=== PATIENT | female | born 1960 | race Caucasian/White ===

== ENCOUNTER 2024-12-14 23:45 | Inpatient (IN) | payer SELFPAY ==
[2024-12-14 18:26] VITALS: BP 147/94
[2024-12-14 18:48] LABS: % Basophils 0.6 % (0-2); % Eosinophils 4.7 % (0-6); % Immature Granulocytes 0.4 % (0-0.5); % Lymphocytes 26.5 % (20.5-51.1); % Monocytes 8.2 % (1.7-9.3); % Neutrophils 59.6 % (42.2-75.2); Absolute Basophils 0.1 10^3/uL (0-0.2); Absolute Eosinophils 0.4 10^3/uL (0-0.7); Absolute Lymphocytes 2.2 10^3/uL (1.2-3.4); Absolute Monocytes 0.7 10^3/uL (0.1-0.6); Absolute Neutrophils 4.9 10^3/uL (1.4-6.5); Hematocrit 42.5 % (37.0-47.0); Hemoglobin 14.5 g/dL (12.0-16.0); Mean Corp Hgb Conc. 34.1 g/dL (33.0-37.0); Mean Corpuscular Hgb 31.1 pg (27.0-31.0); Mean Corpuscular Volume 91.2 fL (81.0-99.0); Mean Platelet Volume 9.7 fL (7.4-10.4); Nucleated Red Blood Cells % 0 %; Platelet Count 275 10^3/uL (130-400); Red Blood Cell Count 4.66 10^6/uL (4.20-5.40); Red Cell Dist. Width 12.6 % (11.5-14.5); White Blood Cell Count 8.2 10^3/uL (4.8-10.8)
[2024-12-14 19:01] LABS: ALT (SGPT) 21 U/L (0-35); AST (SGOT) 24 U/L (14-36); Albumin 4.7 g/dl (3.5-5.0); Alkaline Phosphatase 108 U/L (38-126); Blood Urea Nitrogen 12 mg/dl (7-17); Calcium 9.5 mg/dl (8.4-10.2); Carbon Dioxide 28 mmol/L (22-30); Chloride 102 mmol/L (98-107); Glucose 107 mg/dl (70-99); Potassium 4.3 mmol/L (3.5-5.1); Sodium 137 mmol/L (135-145); Total Bilirubin 0.7 mg/dl (0.2-1.3); Total Protein 7.2 g/dl (6.3-8.2); eGFR > 60.00
[2024-12-14 19:02] LABS: INR 0.95
[2024-12-14 19:14] LABS: Troponin I < 0.012 ng/ml
--- NOTE | 2024-12-14 20:33 | ED.GENMED ---
History of Present Illness
General
Chief Complaint: Breathing Problem
Source: patient
Time Seen by Provider: 12/14/24 20:14
History of Present Illness
History of Present Illness:
This patient is a 64-year-old female with a prior history of COPD who states she has been dyspneic for at least the last 4 to 5 days associated with productive cough and dyspnea on exertion. She sometimes will feel tight in her chest particularly
with coughing, but denies chest pain or pressure. She denies fever, chills, nausea, vomiting, anorexia, leg swelling, abdominal pain, back pain, headache, dizziness, or other complaints.
Past History
Past History
ED Past Medical History: COPD and Psychiatric (Anxiety, depression)
ED Past Surgical History: Gynecological (Ectopic )
Social History
Tobacco: Former smoker
Alcohol: None
Drug: None
Personal:
Living: with family
Phy Exam
Physical Exam
Physical Exam:
GENERAL: Alert , in no apparent distress
EYE: pupils equal and reactive
NECK: Supple, no significant adenopathy.
ENT: o/p clr, mmm.
CARDIAC: Regular rate and rhythm .
LUNGS: Equal breath sounds bilaterally, mild respiratory distress, diffuse wheezes noted, no rales or rhonchi
ABDOMEN: Soft, without focal tenderness, no r/g, no cvat
NEUROLOGICAL: Alert and oriented, no focal neuro deficits
SKIN: Warm and dry, skin intact.
MUSCULOSKELETAL: No edema, well perfused.
PSYCH: Normal and appropriate interaction.
Scores
Heart Failure Risk
Heart Failure Risk Score: Not Applicable
Course
Orders/Labs/Results
Orders:
Orders
12/14/24 18:12
EKG [Electrocardiogram (*1)] Urgent
Reason for Study: Shortness of Breath
EKG- Treatment ONCE
CR Chest - 2 Views Urgent
Comment:
Reason For Exam: SOB
12/14/24 18:33
Complete Blood Count/With Diff Urgent
Comprehensive Metabolic Panel Urgent
Prothrombin Time Urgent
Troponin I Urgent
12/14/24 20:32
Albuterol Sulfate [Ventolin Nebules] 15 mg INH R NOW STA
Dexamethasone Sod Phosphate [Decadron] 8 mg IV NOW STA
12/14/24 21:04
COVID-19 Antigen Urgent
Source: Nasal Swab
Influenza A+B Rapid Molecular Urgent
SEA Source: Nasal Swab
Specimen Description:
Abnormal Lab Results
12/14/24
18:33
MCH 31.1 H pg
(27.0-31.0)
Absolute Monos (auto) 0.7 H 10^3/uL
(0.1-0.6)
Glucose 107 H mg/dl
(70-99)
12/14/24 18:33
12/14/24 18:33
Vital Signs
Initial and Last Documented VS:
Initial Vital Signs
Temp Pulse Resp BP Pulse Ox
98.5 F 104 20 147/94 94
12/14/24 18:26 12/14/24 18:26 12/14/24 18:26 12/14/24 18:26 12/14/24 18:26
Last Documented Vital Signs
Temp Pulse Resp BP Pulse Ox
98.5 F 90 15 150/94 94
12/14/24 18:26 12/14/24 21:09 12/14/24 21:06 12/14/24 21:09 12/14/24 21:09
*Critical Care Note
Total Time (30-74mins, 75-104mins- exclusive of procedures): Not Applicable
Update Note
Update Note:
Patient presents to the Emergency Department with ____dyspnea
Number and Complexity of Problems Addressed at the Encounter
� Chronic conditions affecting care:
� Acute Exacerbation and/or Progression of Chronic Illness:
� Differential Diagnosis includes: But not limited to influenza, COVID, COPD exacerbation, pneumonia, bronchitis, etc. etc.
Amount and/or Complexity of Data to be Reviewed and Analyzed
� I performed an independent evaluation of and my interpretation is:
EKG: Read by me, normal sinus rhythm with PVCs, no acute ischemia
CT:
Xrays: Read by me, NAD, COPD
Laboratory Studies: Read by me, generally unremarkable
Other:
� Review of other/old records reveals: Discharge summary reviewed December 2022 patient was admitted with an exacerbation of COPD associated with influenza
� Clinical information was obtained by an independent historian:
� Prescriptions/Medications Considered but not given:
� Further testing considered but not performed:
Risk of Complications and/or Morbidity or Mortality of Patient Management
� Social determinants of health affecting care:
� Discussion with other providers (PCP, Hospitalists, Consultants, etc):
� Escalation of care including admission/observation vs risk of discharge considered:1004 pm Reassessment, s/p neb...still with significant wheezing, c/o sob. Pox is stable at 92-93%. Will admit/obs for continued care. No
specific infectious etiology identified.
ED Attending Note
-
Portions of this chart may have been created with voice recognition software.� Occasional wrong word or��sound alike� substitutions may have occurred due to the inherent limitations of voice recognition software.
Discharge Plan
Departure
Patient Disposition: Admit
Date of Disposition: 12/14/24
Time of Disposition: 22:04
Admit to: Telemetry
Admit to doctor: armida
Presentation/result/management discussed w/ accepting MD/DO: Hospitalist
Condition: Good
Discharge Problem:
Acute exacerbation of chronic obstructive pulmonary disease
Prescriptions:
No Action
citalopram [Celexa] 40 mg Tablet
40 mg PO DAILY
ipratropium-albuterol 0.5 mg-3 mg(2.5 mg base)/3 mL solution for nebulization
3 ml inhalation R Q4HPRN PRN (Reason: wheezing)
fluticasone propion-salmeterol [Advair Diskus] 100-50 mcg/dose blister with device
1 inh inhalation R BID
guaifenesin [Mucinex] 600 mg tablet extended release 12hr
600 mg PO Q12
benzonatate 100 mg Capsule
100 mg PO TIDPRN PRN (Reason: cough) Qty: 14 0RF
prednisone 20 mg tablet
20 mg PO DAILY Qty: 30 0RF
Rx Instructions:
50mg daily x 3 days, 40mg daily x 3 days, 30mg daily x 3 days, 20mg daily x 3 days, 10mg daily x 3 days (use with 10 mg tabs)
albuterol sulfate 90 mcg/actuation HFA aerosol inhaler
2 puff inhalation R Q6HPRN PRN (Reason: wheezing while out of home) Qty: 0 0RF
prednisone 10 mg tablet
10 mg PO DAILY Qty: 30 0RF
Rx Instructions:
50 mg daily x 3 days, 40mg daily x 3 days, 30 mg daily x 3 days, 20 mg daily x 3 days, 10 mg daily x 3 days (use with 20 mg tabs)
Referrals:
NONE,* [Family Provider] -
Interventions
Interventions:
*Risk Screen - Suicide Last Done: 12/14/24 18:26
*General Assessment Last Done: 12/14/24 21:06
*Neglect/Abuse Screening Last Done: 12/14/24 18:26
*ED COVID-19 Vaccine History Last Done: 12/14/24 21:06
ED- Cardiac Assessment Last Done: 12/14/24 21:19
ED- Pulmonary Assessment Last Done: 12/14/24 21:19
Discharge Date and Time
Print Language: MALAY
[2024-12-14 21:09] VITALS: BP 150/94
[2024-12-14] MEDS: VENTOLIN NEBULES 15 MG INH (21:10)
[2024-12-14] MEDS: DECADRON 8 MG IV (21:10)
[2024-12-14 21:38] LABS: COVID-19 Antigen Negative (Negative)
[2024-12-14 22:00] VITALS: BP 121/75
[2024-12-14 23:01] VITALS: BP 120/74
--- NOTE | 2024-12-14 23:41 | HPS.HSE ---
Family Physician
-
Family Physician: * NONE
Chief Complaint
-
Cough / SOB
History of Present Illness
Patient is a 64y F with PMH significant for COPD who presents to ED complaining of cough and SOB. Patient states that she initially developed cough about one week ago. Cough has been productive of whitish mucus. She states that her symptoms
have been progressively worse and today she felt flushed and very SOB and presented to the ED for evaluation. Patient was last admitted here for COPD / influenza in December 2022. She notes that she has not smoked since that time. She was initially
on inhalers for COPD; however, she states that she stopped these > 1 year ago as she was feeling well. She has not had any issues with cough, dyspnea, etc until about one week ago.
Medical History
Past Medical History
Past Medical History: Reports Other
Additional Past Medical History:
COPD
Anxiety / Depression
Past Surgical History: Reports Other
Additional Past Surgical History:
Ectopic
GENA
Social History
Tobacco: Former Smoker (Quit in 2022. > 40 pack years total use.)
Alcohol: Daily (3 beers daily.)
Drug: None
Family History
Family History: Other (Father: Prostate cancer Mother: Bone cancer)
Allergies / Home Medications
Allergies reflects when Allergies were last updated in [facility].
Home Medications with original date entered in [facility]
Allergy/Medication List:
Allergies
Allergy/AdvReac Type Severity Reaction Status Date / Time
amoxicillin Allergy Unknown Verified 12/14/24 18:25
Cephalosporins Allergy Unknown Verified 12/14/24 18:25
Penicillins Allergy Unknown Verified 12/14/24 18:25
Home Medications
citalopram 40 mg tablet (Celexa) 40 mg PO DAILY Mental Health/Anxiety 12/12/22
Review of Systems
-
History Source: Patient
A 12 point ROS was completed and negative except as noted: Yes
Constitutional: Reports Fever, Fatigue and Chills
EENT: Denies Sore Throat
Respiratory: Reports Cough and Trouble Breathing
Cardiac: Denies Chest Pain or Palpitations
Abdomen/GI: Denies Abdominal Pain, Nausea, Vomiting or Diarrhea
: Denies Dysuria, Frequency or Flank Pain
Musculoskeletal: Denies Joint Pain or Edema
Neurological: Denies Dizzy or Headache
Physical Exam
Vital Signs
Vital Signs
Temp Pulse Resp BP Pulse Ox
98.5 F 108 17 121/75 90
12/14/24 18:26 12/14/24 22:30 12/14/24 22:30 12/14/24 22:00 12/14/24 22:30
Physical Exam
General: Other (64y F in no acute distress.)
HEENT: PERRLA and Other (Dry MM)
Respiratory: Other (Diffuse expiratory wheezes throughout. No rales / rhonchi.)
Cardiac: S1/S2 and Tachycardia; No Murmur
GI: Soft, Non Tender, Non Distended and Normal Bowel Sounds
Musculoskeletal: No Clubbing, No Cyanosis and No Edema
Neuro: AO x 3
Laboratory Results
-
12/14/24 18:33
12/14/24 18:33
Laboratory Results
PT 13.0 Sec (11.4-14.6) 12/14/24 18:33
INR 0.95 12/14/24 18:33
Total Bilirubin 0.7 mg/dl (0.2-1.3) 12/14/24 18:33
AST 24 U/L (14-36) 12/14/24 18:33
ALT 21 U/L (0-35) 12/14/24 18:33
Alkaline Phosphatase 108 U/L (38-126) 12/14/24 18:33
Troponin I < 0.012 ng/ml 12/14/24 18:33
Impression/Plan
-
A/P: Patient is a 64y F with PMH significant for COPD who presents to ED complaining of cough and SOB x 1 week.
COPD with Acute Exacerbation
Acute Hypoxemic Respiratory Insufficiency secondary to the above
- Admit for further evaluation and treatment.
- COVID / flu negative in the ED. CXR unremarkable.
- IV steroids, nebs ATC and PRN.
- Supplemental O2 as needed / wean as able.
- Follow for clinical improvement.
- Resume maintenance inhalers at discharge and recommend outpatient Pulm follow-up.
Anxiety / Depression
- Stable. Continue citalopram.
DVT Prophylaxis: Lovenox
Code Status: Full
[2024-12-15] VITALS (8 sets, daily range): BP systolic 108–147; BP diastolic 80–94; PULSE 106–109; O2SAT 92; BMI 23.4
[2024-12-15] MEDS: DECADRON 4 MG IV ×4 (02:33→19:32)
--- NOTE | 2024-12-15 02:54 | PTCARENOTE ---
Patient received from ED via stretcher and ambulated in room. She was oriented to room and surroundings. She has a harsh cough productive of white sputum. Breath sounds are coarse throughout with Exp wheezes. +MIRELES, O2 at 2lpm nasal cannula.
HRR. BRP. Denies pain. IV Decadron per order.
[2024-12-15] MEDS: ROBITUSSIN DM 5 ML PO ×2 (04:17→09:34)
[2024-12-15 07:14] LABS: Hemoglobin 13.9 g/dL (12.0-16.0); Mean Corp Hgb Conc. 33.9 g/dL (33.0-37.0); Mean Corpuscular Hgb 30.9 pg (27.0-31.0); Mean Corpuscular Volume 91.1 fL (81.0-99.0); Platelet Count 275 10^3/uL (130-400); Red Cell Dist. Width 12.6 % (11.5-14.5); White Blood Cell Count 5.2 10^3/uL (4.8-10.8)
[2024-12-15] MEDS: DUONEB 3 ML INH ×4 (07:31→20:20)
--- NOTE | 2024-12-15 07:50 | W.PN.HOSP.TC ---
Today's Communication/Plan
-
See plan
Assessment / Plan
Assessment / Plan
Physical Exam
General: Not in acute distress.
HEENT: Normocephalic.
Respiratory: Diffuse expiratory wheezes throughout
Cardiac: S1/S2 and RRR.
GI: Soft, Non Tender, Non Distended and Normal Bowel Sounds
Musculoskeletal: No Cyanosis and No Edema
Neuro: AO x 3
Assessment/Plan
Patient is a 64 y/o female with past medical history significant for COPD (per patient this is not confirmed, but she smoked cigarettes 1.5 PPD for decades, prior to quitting about 2 years ago) who presented complaining of cough and shortness of
breath x 1 week.
COPD with Acute Exacerbation
Acute Hypoxemic Respiratory Insufficiency secondary to the above
- CXR suggests COPD but no signs of pneumonia, check CT Chest PE study to rule out PE as a possible cause
- COVID / flu negative in the ED. CXR unremarkable.
- IV steroids --> switch to PO steroids starting tomorrow and monitor signs and symptoms
- nebs ATC and PRN.
- Acapella, chest physiotherapy
- Supplemental O2 as needed / wean as able.
- Follow for clinical improvement.
- Resume maintenance inhalers at discharge (patient said she previously could not afford combination inhalers and was previously only on albuterol) and recommend outpatient Pulm follow-up.
Prolonged QTc
Allergies to Penicillins and Cephalosporins
Anxiety / Depression
- Stable. Continue citalopram.
DVT Prophylaxis: Lovenox
Code Status: Full
Anticipated Discharge: 24 - 48 hours
Subjective/Interval History
-
Date of Service: December 15, 2024
Patient was seen and examined. She reported continued cough, but said she is feeling better this morning.
Objective Data
-
Labs:
Laboratory Results
12/15/24
06:39
WBC 5.2
Hgb 13.9
Hct 41.0
Plt Count 275
Sodium Pending
Potassium Pending
Chloride Pending
Carbon Dioxide Pending
BUN Pending
Creatinine Pending
Glucose Pending
Calcium Pending
Vital Signs:
Vital Signs
Temp Pulse Resp BP Pulse Ox
97.7 F 80 14 147/89 94
12/15/24 02:18 12/15/24 07:34 12/15/24 07:34 12/15/24 02:18 12/15/24 07:34
I&O
12/14/24 12/15/24 12/16/24
06:59 06:59 06:59
Intake Total 0 / 0
Balance 0 / 0
[2024-12-15 07:56] LABS: Blood Urea Nitrogen 12 mg/dl (7-17); Calcium 9.6 mg/dl (8.4-10.2); Carbon Dioxide 26 mmol/L (22-30); Chloride 102 mmol/L (98-107); Estimated Creatinine Clearance 89 ml/min; Glucose 175 mg/dl (70-99); Potassium 4.8 mmol/L (3.5-5.1); Sodium 134 mmol/L (135-145); eGFR > 60.00
[2024-12-15] MEDS: CELEXA 40 MG PO (09:28)
[2024-12-15] MEDS: LOVENOX 40 MG SC (17:08)
[2024-12-15 20:31] LABS: Hepatitis C Antibody Negative (Negative)
[2024-12-16 06:00] VITALS: BMI 23.3
[2024-12-16] MEDS: DUONEB 3 ML INH ×4 (07:39→19:23)
[2024-12-16 08:13] VITALS: BP 135/77
--- NOTE | 2024-12-16 08:52 | W.PN.HOSP.TC ---
Today's Communication/Plan
-
Symbicort
Orthostatic hypotension -- check echo, abdominal binder, ALEIDA stockings, will consider IV fluids
See plan
Assessment / Plan
Assessment / Plan
Physical Exam
General: Not in acute distress.
HEENT: Normocephalic.
Respiratory: Diffuse expiratory wheezes throughout
Cardiac: S1/S2 and RRR.
GI: Soft, Non Tender, Non Distended and Normal Bowel Sounds
Musculoskeletal: No Cyanosis and No Edema
Neuro: AO x 3
Assessment/Plan
Patient is a 64 y/o female with past medical history significant for COPD (per patient this is not confirmed, but she smoked cigarettes 1.5 PPD for decades, prior to quitting about 2 years ago) who presented complaining of cough and shortness of
breath x 1 week.
COPD with Acute Exacerbation
Acute Hypoxemic Respiratory Insufficiency secondary to the above
- CXR suggests COPD but no signs of pneumonia, CT Chest PE showed no PE
- COVID / flu negative in the ED. CXR unremarkable.
- IV steroids --> switched to PO steroids starting today
- nebs ATC and PRN.
- Acapella, chest physiotherapy
- Symbicort started, check pricing, case management consult placed
- Supplemental O2 as needed / wean as able.
- Follow for clinical improvement.
- Resume maintenance inhalers at discharge (patient said she previously could not afford combination inhalers and was previously only on albuterol) and recommend outpatient Pulm follow-up.
Orthostatic Hypotension
-Present on 12/16/24 AM
-Check Echo
-Continue to monitor on tele
-Abdominal binder and DAX stockings while awake and out of bed
Prolonged QTc
Allergies to Penicillins and Cephalosporins
Anxiety / Depression
- Stable. Continue citalopram.
DVT Prophylaxis: Lovenox
Code Status: Full
Anticipated Discharge: 24 - 48 hours
Subjective/Interval History
-
Date of Service: December 16, 2024
Patient was seen and examined. She reported her shortness of breath has improved. Was a bit lightheaded this morning when she got up to go to the bathroom, found to have orthostatic hypotension.
Objective Data
-
Vital Signs:
Vital Signs
Temp Pulse Resp BP Pulse Ox
97.7 F 72 20 135/77 99
12/16/24 08:13 12/16/24 08:13 12/16/24 08:13 12/16/24 08:13 12/16/24 08:13
I&O
12/15/24 12/16/24 12/17/24
06:59 06:59 06:59
Intake Total 0 / 0 600 / 600
Balance 0 / 0 600 / 600
[2024-12-16] MEDS: DELTASONE 50 MG PO (08:54)
[2024-12-16] MEDS: CELEXA 40 MG PO (08:54)
[2024-12-16 09:03] VITALS: BP 110/82; BP 131/85; BP 139/83; PULSE 83; PULSE 89; PULSE 91
[2024-12-16] MEDS: ROBITUSSIN DM 5 ML PO ×2 (12:40→18:30)
[2024-12-16 16:08] VITALS: BP 114/85
[2024-12-16] MEDS: LOVENOX 40 MG SC (17:25)
[2024-12-16] MEDS: SYMBICORT 160/4.5 MCG INHALER 2 PUFF INH (19:23)
[2024-12-16] MEDS: MUCINEX 600 MG PO (20:26)
[2024-12-16 23:11] VITALS: BP 128/87
[2024-12-17 06:00] VITALS: BMI 23.1
[2024-12-17 07:26] VITALS: BP 127/91
[2024-12-17] MEDS: DUONEB 3 ML INH ×4 (07:29→19:53)
[2024-12-17] MEDS: SYMBICORT 160/4.5 MCG INHALER 2 PUFF INH ×2 (07:29→19:53)
[2024-12-17 08:27] LABS: Hematocrit 44.3 % (37.0-47.0); Hemoglobin 14.3 g/dL (12.0-16.0); Mean Corp Hgb Conc. 32.3 g/dL (33.0-37.0); Mean Corpuscular Hgb 30.5 pg (27.0-31.0); Mean Corpuscular Volume 94.5 fL (81.0-99.0); Mean Platelet Volume 9.7 fL (7.4-10.4); Platelet Count 277 10^3/uL (130-400); Red Blood Cell Count 4.69 10^6/uL (4.20-5.40); Red Cell Dist. Width 13.1 % (11.5-14.5)
--- NOTE | 2024-12-17 09:06 | W.PN.HOSP.TC ---
Today's Communication/Plan
-
Patient SOB better, but still feeling terrible and she said she is not ready to go home
Decrease Prednisone
PT/OT
Assessment / Plan
Assessment / Plan
Physical Exam
General: Not in acute distress.
HEENT: Normocephalic.
Respiratory: Diffuse expiratory wheezes throughout
Cardiac: S1/S2 and RRR.
GI: Soft, Non Tender, Non Distended and Normal Bowel Sounds
Musculoskeletal: No Cyanosis and No Edema
Neuro: AO x 3
Assessment/Plan
Patient is a 64 y/o female with past medical history significant for COPD (per patient this is not confirmed, but she smoked cigarettes 1.5 PPD for decades, prior to quitting about 2 years ago) who presented complaining of cough and shortness of
breath x 1 week.
COPD with Acute Exacerbation
Acute Hypoxemic Respiratory Insufficiency - RESOLVED - secondary to the above
- Patient still coughing, with sore throat, says SOB is better but overall not feeling great and not ready to go home
- CXR suggests COPD but no signs of pneumonia, CT Chest PE showed no PE
- COVID / flu negative in the ED. CXR unremarkable.
- IV steroids --> switched to PO steroids --> was on 50 mg daily x2 days, now reduced to 40 mg daily starting on 12/17/24
- nebs ATC and PRN.
- Acapella, chest physiotherapy
- Ensure good pulmonary toilet
- Symbicort started, check pricing, case management consult placed -- patient has [facility] Rx and is getting a coupon for Symbicort
- ON ROOM AIR NOW
- Follow for clinical improvement.
- Resume maintenance inhalers at discharge (patient said she previously could not afford combination inhalers and was previously only on albuterol) and recommend outpatient Pulm follow-up.
Orthostatic Hypotension
-Present on 12/16/24 AM
-Echo i s unremarkable
-Continue to monitor on tele
-DAX stockings while awake and out of bed. Patient said she cannot wear abdominal binder.
Prolonged QTc
Allergies to Penicillins and Cephalosporins
Anxiety / Depression
- Stable. Continue citalopram.
DVT Prophylaxis: Lovenox
Code Status: Full
Anticipated Discharge: 24 - 48 hours
Subjective/Interval History
-
Date of Service: December 17, 2024
Patient was seen and examined. She reported continued cough and some sore throat.
Objective Data
-
Labs:
Laboratory Results
12/17/24 12/17/24
08:03 08:04
WBC 9.0
Hgb 14.3
Hct 44.3
Plt Count 277
Sodium Pending
Potassium Pending
Chloride Pending
Carbon Dioxide Pending
BUN Pending
Creatinine Pending
Glucose Pending
Calcium Pending
Vital Signs:
Vital Signs
Temp Pulse Resp BP Pulse Ox
98.6 F 86 18 128/87 92
12/16/24 23:11 12/17/24 07:34 12/17/24 07:34 12/16/24 23:11 12/17/24 07:34
I&O
12/16/24 12/17/24 12/18/24
06:59 06:59 06:59
Intake Total 600 / 600 240 / 240
Balance 600 / 600 240 / 240
[2024-12-17] MEDS: CELEXA 40 MG PO (09:23)
[2024-12-17] MEDS: DELTASONE PO (09:24)
[2024-12-17] MEDS: MUCINEX 600 MG PO ×2 (09:24→20:07)
[2024-12-17 09:37] LABS: Blood Urea Nitrogen 18 mg/dl (7-17); Calcium 9.4 mg/dl (8.4-10.2); Carbon Dioxide 26 mmol/L (22-30); Chloride 100 mmol/L (98-107); Estimated Creatinine Clearance 89 ml/min; Glucose 89 mg/dl (70-99); Potassium 4.6 mmol/L (3.5-5.1); Sodium 137 mmol/L (135-145); eGFR > 60.00
[2024-12-17 09:58] VITALS: BP 116/83; BP 117/76; BP 118/73; PULSE 84; PULSE 96; PULSE 97
[2024-12-17] MEDS: DELTASONE 40 MG PO (10:06)
[2024-12-17] MEDS: ROBITUSSIN DM 5 ML PO (11:37)
[2024-12-17 11:43] VITALS: BP 127/79
[2024-12-17 15:15] VITALS: BP 110/70
--- NOTE | 2024-12-17 16:29 | PTCARENOTE ---
Pt AAO x3, RUVALCABA well, OOB to BR; mayuri well. pt c/o 'Not feeling so good today' earlier in shift. VSS. Telemetry:NSR/ST with occ PVC's. On room air- pulseox 93%, pt with (+) slight MIRELES/tachypnea; has occ harsh, non-productive cough. Abd soft, mayuri
PO. Voids in BR without difficulty. resting in bed at present, no c/o. Will continue t omonitor.
--- NOTE | 2024-12-17 16:43 | CM ---
Patient seen bedside.
Pricing for Symbicort approx $230, patient has [facility] and [facility] has medication for $97.09 and she signed up for coupon.
Plan: Home no needs, spouse will transport.
[2024-12-17] MEDS: LOVENOX 40 MG SC (17:47)
[2024-12-17 19:34] VITALS: BP 127/84
[2024-12-17 23:51] VITALS: BP 109/78
[2024-12-18 03:35] VITALS: BP 129/90; BP 136/92; BP 137/101; PULSE 101; PULSE 102; PULSE 82
[2024-12-18 06:00] VITALS: BMI 23.3
[2024-12-18] MEDS: SYMBICORT 160/4.5 MCG INHALER 2 PUFF INH (07:34)
[2024-12-18] MEDS: DUONEB 3 ML INH (07:34)
[2024-12-18 07:45] LABS: Hematocrit 38.2 % (37.0-47.0); Hemoglobin 13.5 g/dL (12.0-16.0); Mean Corp Hgb Conc. 35.3 g/dL (33.0-37.0); Mean Corpuscular Hgb 31.3 pg (27.0-31.0); Mean Corpuscular Volume 88.6 fL (81.0-99.0); Mean Platelet Volume 10.5 fL (7.4-10.4); Platelet Count 255 10^3/uL (130-400); Red Blood Cell Count 4.31 10^6/uL (4.20-5.40); Red Cell Dist. Width 12.9 % (11.5-14.5); White Blood Cell Count 8.7 10^3/uL (4.8-10.8)
[2024-12-18 08:15] VITALS: BP 121/84
[2024-12-18 09:02] VITALS: O2SAT 95
[2024-12-18] MEDS: MUCINEX 600 MG PO (09:14)
[2024-12-18] MEDS: DELTASONE 40 MG PO (09:14)
[2024-12-18] MEDS: CELEXA 40 MG PO (09:14)
[2024-12-18 10:00] LABS: Blood Urea Nitrogen 17 mg/dl (7-17); Calcium 9.6 mg/dl (8.4-10.2); Carbon Dioxide 28 mmol/L (22-30); Chloride 101 mmol/L (98-107); Estimated Creatinine Clearance 89 ml/min; Glucose 122 mg/dl (70-99); Potassium 4.2 mmol/L (3.5-5.1); Sodium 137 mmol/L (135-145); eGFR > 60.00
[2024-12-18 12:12] VITALS: BP 114/85
--- NOTE | 2024-12-18 13:26 | W.PN.HOSP.TC ---
Today's Communication/Plan
-
Discharge today
Assessment / Plan
Assessment / Plan
Physical Exam
General: Not in acute distress.
HEENT: Normocephalic.
Respiratory: Clear to Auscultation Bilaterally
Cardiac: S1/S2 and RRR.
GI: Soft, Non Tender, Non Distended and Normal Bowel Sounds
Musculoskeletal: No Cyanosis and No Edema
Neuro: AO x 3
Assessment/Plan
Patient is a 64 y/o female with past medical history significant for COPD (per patient this is not confirmed, but she smoked cigarettes 1.5 PPD for decades, prior to quitting about 2 years ago) who presented complaining of cough and shortness of
breath x 1 week.
COPD with Acute Exacerbation
Acute Hypoxemic Respiratory Insufficiency - RESOLVED - secondary to the above
- CXR suggests COPD but no signs of pneumonia, CT Chest PE showed no PE
- COVID / flu negative in the ED. CXR unremarkable.
- IV steroids --> switched to PO steroids --> was on 50 mg daily x2 days, now reduced to 40 mg daily starting on 12/17/24, will taper on
discharge
- Nebs PRN.
- Acapella, chest physiotherapy while inpatient, patient does not want chest percussion anymore
- Ensure good pulmonary toilet
- Symbicort started, check pricing, case management consult placed -- patient has [facility] and is getting a coupon for Symbicort
- ON ROOM AIR NOW
- Follow for clinical improvement.
- Resume maintenance inhalers at discharge (patient said she previously could not afford combination inhalers and was previously only on albuterol) and recommend outpatient Pulm follow-up.
Orthostatic Hypotension
-Present on 12/16/24 AM
-Echo i s unremarkable
-Continue to monitor on tele
-DAX stockings while awake and out of bed. Patient said she cannot wear abdominal binder.
Prolonged QTc
Allergies to Penicillins and Cephalosporins
Anxiety / Depression
- Stable. Continue citalopram.
DVT Prophylaxis: Lovenox
Code Status: Full
More than 30 minutes spent in discharge including
Final examination of the patient
Summarizing hospital stay
Instructions for continuing care to all relevant caregivers
Preparation of discharge records, prescriptions, and referral forms
Total time spent (in minutes): 39
Anticipated Discharge: Today
Subjective/Interval History
-
Date of Service: December 18, 2024
Patient was seen and examined. She reported feeling better, she denied any chest pain or shortness of breath and said that she wanted to go home today.
Objective Data
-
Labs:
Laboratory Results
12/18/24 12/18/24
06:31 09:34
WBC 8.7
Hgb 13.5
Hct 38.2
Plt Count 255
Sodium Cancelled 137
Potassium Cancelled 4.2
Chloride Cancelled 101
Carbon Dioxide Cancelled 28
BUN Cancelled 17
Creatinine Cancelled 0.6
Glucose Cancelled 122 H
Calcium Cancelled 9.6
Vital Signs:
Vital Signs
Temp Pulse Resp BP Pulse Ox
98.4 F 86 18 114/85 98
12/18/24 12:12 12/18/24 12:12 12/18/24 12:12 12/18/24 12:12 12/18/24 12:12
I&O
12/17/24 12/18/24 12/19/24
06:59 06:59 06:59
Intake Total 240 / 240 1140 / 1140 480 / 480
Balance 240 / 240 1140 / 1140 480 / 480
[2024-12-18 15:54] VITALS: BP 140/73
== END 2024-12-18 16:57 | disposition home or self-care (01) | DRG 192 ==
LOC: 4 EAST ACU 23:45
PROVIDERS: ADMITTING PHYSICIAN Hospitalist; ATTENDING PHYSICIAN Hospitalist; EMERGENCY PHYSICIAN Emergency Medicine
DX: J44.1 Chronic obstructive pulmonary disease with (acute) exacerbation (principal); R09.02 Hypoxemia; I95.1 Orthostatic hypotension; F41.9 Anxiety disorder, unspecified; F32.A Depression, unspecified; Z87.891 Personal history of nicotine dependence; Z80.42 Family history of malignant neoplasm of prostate; Z80.8 Family history of malignant neoplasm of other organs or systems; Z88.0 Allergy status to penicillin; Z88.1 Allergy status to other antibiotic agents; Z11.52 Encounter for screening for COVID-19
CPT/HCPCS: 71046; 71275; 80048; 80053; 83735; 84484; 85025; 85027; 85610; 86803; 87502; 87811; 93005; 93306; 94640; 94669; 96374; 97162; 97164; 97166; 97168; 99285; Q9967

== ENCOUNTER → 2025-07-15 11:00 | Outpatient (REF) | payer MEDICARE, SELFPAY | LOC: RAD 11:00 | PROVIDERS: ATTENDING PHYSICIAN Nurse Practitioner Family | DX: M79.601 Pain in right arm (principal) | CPT/HCPCS: 93971 ==

== ENCOUNTER 2025-09-30 06:08 | Inpatient (IN) | payer MEDICARE, SELFPAY ==
[2025-09-30] VITALS (12 sets, daily range): BP systolic 111–165; BP diastolic 82–105; BMI 25.7
[2025-09-30] MEDS: DUONEB 3 ML INH ×5 (02:21→20:52)
[2025-09-30 02:35] LABS: Hematocrit 43.2 % (37.0-47.0); Hemoglobin 14.5 g/dL (12.0-16.0); Mean Corp Hgb Conc. 33.6 g/dL (33.0-37.0); Mean Corpuscular Volume 89.3 fL (81.0-99.0); Nucleated Red Blood Cells % 0 %; Platelet Count 291 10^3/uL (130-400); Red Cell Dist. Width 12.5 % (11.5-14.5)
[2025-09-30 02:51] LABS: ALT (SGPT) 23 U/L (0-35); AST (SGOT) 27 U/L (14-36); Albumin 4.7 g/dl (3.5-5.0); Alkaline Phosphatase 110 U/L (38-126); Blood Urea Nitrogen 7 mg/dl (7-17); Calcium 9.5 mg/dl (8.4-10.2); Carbon Dioxide 27 mmol/L (22-30); Chloride 102 mmol/L (98-107); Estimated Creatinine Clearance 84 ml/min; Glucose 147 mg/dl (70-99); Potassium 4.5 mmol/L (3.5-5.1); Sodium 136 mmol/L (135-145); Total Protein 7.7 g/dl (6.3-8.2); eGFR > 60.00
[2025-09-30] MEDS: DECADRON 10 MG IV (02:52)
[2025-09-30 02:54] LABS: COVID-19 Antigen Negative (Negative)
--- NOTE | 2025-09-30 02:56 | ED.GENMED ---
History of Present Illness
General
Chief Complaint: Breathing Problem
Source: patient
Exam Limitations: none
Time Seen by Provider: 09/30/25 02:14
Nursing documentation reviewed up to this point in time: agreed with
History of Present Illness
History of Present Illness:
65-year-old female with past medical history of COPD, asthma, anxiety, depression, presents to the ER today with concerns of shortness of breath coughing. This has been going on for the past few days. She reports that she developed runny nose and
sore throat the past week and is coughing up sputum. She is in contact with a family member who is sick. She has been doing home nebulizer treatments with minimal relief. She does not require oxygen at home. Patient reports that she is a very
poor appetite and cannot taste foods. Per nursing staff, once patient got to ER room, her oxygen saturation was between 83 to 86% consistently on room air warranting 2 L of supplemental oxygen via nasal cannula. The patient reports taking
citalopram and levothyroxine regularly as well as some inhalers, no other medications. She currently does not take a blood thinner. She denies any recent use of. She denies any swelling or pain in her lower extremities. She denies any chest pain.
Past History
Past History
ED Past Medical History: COPD and Psychiatric (Anxiety, depression)
ED Past Surgical History: Gynecological (Ectopic )
Social History
Tobacco: Former smoker
Alcohol: None
Drug: None
Personal:
Living: with family
Review of Systems
Review of Systems
All Other Systems: ROS reviewed and negative except as documented in HPI and ROS
Phy Exam
Physical Exam
Physical Exam:
General: Patient is well appearing and in no acute distress; non-toxic
Skin: Warm and dry, no rashes or lesions
Head: Normocephalic, atraumatic
Eyes: Sclera non-icteric. EOMs intact.
Cardiac: Tachycardia noted otherwise regular rhythm, no murmurs
Peripheral Vascular: No lower extremity swelling or edema
Pulm: Increased respiratory rate, conversational dyspnea, hypoxic on room air, diffuse wheezing heard bilaterally
Abdomen: No abdominal tenderness to palpation
Neuro: CN II-XII intact, no focal neurologic deficits.
Psychiatric: Appropriate mood and affect.
Scores
Heart Failure Risk
Heart Failure Risk Score: Not Applicable
Course
Orders/Labs/Results
Orders:
Orders
09/30/25 02:07
Ipratropium/Albuterol Sulfate [Duoneb] 3 ml .ROUTE .STK-MED ONE
09/30/25 02:21
Ipratropium/Albuterol Sulfate [Duoneb] 3 ml INH R NOW ONE
09/30/25 02:22
Electrocardiogram (*1) Urgent
Reason for Study: Shortness of Breath
Other Reason for Exam: tachycardia
EKG- Treatment ONCE
09/30/25 02:23
Complete Blood Count/With Diff Urgent
Comprehensive Metabolic Panel Urgent
09/30/25 02:29
COVID-19 Antigen Urgent
Source: Nasal Swab
Influenza A+B Rapid Molecular Urgent
SEA Source: Nasal Swab
Specimen Description:
09/30/25 02:38
CT Chest PE Study Urgent
Comment:
Reason For Exam: tachycardia, sob
Dexamethasone Sod Phosphate [Decadron] 10 mg IV NOW STA
Ipratropium/Albuterol Sulfate [Duoneb] 3 ml INH R NOW STA
09/30/25 02:47
NT-proBNP Urgent
Troponin I Urgent
Sputum Culture [Respiratory Culture/Gram Stain] Urgent
SEA Source: Mouth/Oral Cavity
Specimen Description:
Date Specimen was Collected: 09/30/25
Time Specimen was Collected: 02:42
Abnormal Lab Results
09/30/25
02:23
Absolute Lymphs (auto) 1.0 L 10^3/uL
(1.2-3.4)
Absolute Monos (auto) 0.8 H 10^3/uL
(0.1-0.6)
Lymphocytes % 14.7 L %
(20.5-51.1)
Monocytes % 12.0 H %
(1.7-9.3)
Glucose 147 H mg/dl
(70-99)
09/30/25 02:23
09/30/25 02:23
Vital Signs
Initial and Last Documented VS:
Initial Vital Signs
Temp Pulse Resp BP Pulse Ox
98.4 F 125 30 165/105 86
09/30/25 02:07 09/30/25 02:07 09/30/25 02:07 09/30/25 02:07 09/30/25 02:07
Last Documented Vital Signs
Temp Pulse Resp BP Pulse Ox
98.4 F 113 20 128/96 93
09/30/25 02:07 09/30/25 05:00 09/30/25 05:00 09/30/25 05:00 09/30/25 05:13
MDM/Problems Addressed
Differential Diagnosis Includes:
COPD exacerbation secondary to viral syndrome, pneumonia, pulmonary embolism, cardiac arrhythmia
MDM/Problems Addressed:
65-year-old female with past medical history of COPD, asthma, anxiety, depression, presents to the ER today with concerns of shortness of breath coughing.
She is hypoxic to 83-86% on RA.
2 duonebs given with symptomatic improvement
Sputum culture sent off
CTA negative for PE, negative for pneumonia
She is afebrile
Suspect COPD exacerbation secondary to viral syndrome
Will require admission for continued symptomatic management and considering new oxygen requirement
Chronic conditions affecting care: HTN and COPD
Acute Exacerbation and/or Progression of Chronic Illness: COPD
*Pulse Oximetry
SaO2: 97
Nasal Cannula flow liters per minute: 2
Oxygen Mode of Delivery: Room air
Patient hypoxic: yes
*EKG
Interpreted by ED Provider?: Yes
EKG Intrepretation Date: 09/30/25
Interpretation: abnormal
Heart Rate: 117
Rate: tachycardiac
Rhythm: sinus
[place]: left axis deviation
QRS Pattern: right bundle branch block
*Stain Wiper Interpretation
Rate: tachycardiac
Heart Rate: 125
Rhythm: sinus
*Critical Care Note
Total Time (30-74mins, 75-104mins- exclusive of procedures): Not Applicable
Data Reviewed
Review of Other/Old Records Reveals: Records (reviewed discharge summary from 12/18/24)
Source: patient and records
Patient Management
Escalation/DeEscalation of care consider admission/obs:
Admission indicated
Case discussed with ED attending
ED Attending Note
-
Portions of this chart may have been created with voice recognition software.� Occasional wrong word or��sound alike� substitutions may have occurred due to the inherent limitations of voice recognition software.
Discharge Plan
Departure
Patient Disposition: Admit
Date of Disposition: 09/30/25
Time of Disposition: 05:10
Admit to: Med/Surg
Presentation/result/management discussed w/ accepting MD/DO: Hospitalist
Patient with high blood pressure during this ER visit?: Yes
Condition: Fair
Discharge Problem:
Acute exacerbation of chronic obstructive pulmonary disease, Hypoxia
Prescriptions:
No Action
citalopram [Celexa] 40 mg Tablet
40 mg PO DAILY
prednisone 10 mg tablet
10 mg PO DIRECTED Qty: 12 0RF
Rx Instructions:
Starting on 12/19/24: 30 mg/day x2 days; 20 mg/day x2 days; 10 mg/day x2 days
ipratropium-albuterol 0.5 mg-3 mg(2.5 mg base)/3 mL Solution For Nebulization
3 ml inhalation R Q6HPRN PRN (Reason: shortness of breath/wheezing) Qty: 90 1RF
guaifenesin 600 mg Tablet Extended Release 12hr
600 mg PO Q12 Qty: 14 0RF
budesonide-formoterol [Symbicort] 160-4.5 mcg/actuation Hfa Aerosol Inhaler
2 puff inhalation R BID Qty: 10.2 1RF
Referrals:
Caryn Rios CRNP [Family Provider, Family Practice]
Interventions
Interventions:
*Risk Screen - Suicide Last Done: 09/30/25 02:07
*General Assessment Last Done: 09/30/25 02:13
*Neglect/Abuse Screening Last Done: 09/30/25 02:13
*ED COVID-19 Vaccine History Last Done: 09/30/25 02:20
*ED Influenza Vaccine History Last Done: 09/30/25 02:13
[facility] Fall Risk Assessment Tool Last Done: 09/30/25 02:13
ED- Cardiac Assessment Last Done: 09/30/25 02:53
ED- Pulmonary Assessment Last Done: 09/30/25 02:53
Discharge Date and Time
Print Language: CHINESE
[2025-09-30 04:02] LABS: Troponin I < 0.012 ng/ml
--- NOTE | 2025-09-30 05:59 | HPS.HSE ---
Family Physician
-
Family Physician: NICOL Sahu
Chief Complaint
-
wheezing and sob
History of Present Illness
65 female history of anxiety depression who presents with progressively worsening shortness of breath that began this Sunday (today is Sunday) with associated rhinorrhea and congestion and sore throat and a productive cough that is clear to
yellow. On presentation tachypneic however lowest recorded SpO2 91% started on supplemental oxygen with improvement. Believe trigger is cold weather and smoke. States was up at a local [employer] and was around smokers.
Should be noted she does not carry a formal diagnosis of COPD as she has not had pulmonary function testing completed.
Medical History
Past Medical History
Past Medical History: Reports Psychiatric
Past Surgical History: Reports None
Social History
Tobacco: Former Smoker
Alcohol: Occasional
Drug: None
Family History
Family History: Not pertinent
Allergies / Home Medications
Allergies reflects when Allergies were last updated in [employer].
Home Medications with original date entered in [employer]
Allergy/Medication List:
Allergies
Allergy/AdvReac Type Severity Reaction Status Date / Time
amoxicillin Allergy Unknown Verified 09/30/25 02:06
Cephalosporins Allergy Unknown Verified 09/30/25 02:06
Penicillins Allergy Unknown Verified 09/30/25 02:06
Home Medications
citalopram 40 mg tablet (Celexa) 40 mg PO DAILY Mental Health/Anxiety 12/12/22
budesonide-formoterol HFA 160 mcg-4.5 mcg/actuation aerosol inhaler (Symbicort) 2 puff inhalation R BID #10.2 grams 12/18/24
guaifenesin 600 mg tablet, extended release 12 hr 600 mg PO Q12 #14 tabs 12/18/24
ipratropium 0.5 mg-albuterol 3 mg (2.5 mg base)/3 mL nebulization soln 3 ml inhalation R Q6HPRN PRN shortness of breath/wheezing #90 mL 12/18/24
prednisone 10 mg tablet 10 mg PO DIRECTED #12 tabs 12/18/24
Review of Systems
-
A 12 point ROS was completed and negative except as noted: Yes
Physical Exam
Vital Signs
Vital Signs
Temp Pulse Resp BP Pulse Ox
98.4 F 113 20 128/96 93
09/30/25 02:07 09/30/25 05:00 09/30/25 05:00 09/30/25 05:00 09/30/25 05:13
Physical Exam
General: Well Developed, Well Nourished and Conversant
HEENT: NormoCephalic and Anicteric
Respiratory: Wheezes
Cardiac: S1/S2, Regular Rhythm and Tachycardia
GI: Soft
Musculoskeletal: No Clubbing and No Cyanosis
Skin: Warm and Dry
Neuro: Awake and AO x 3
Psych: Calm
Laboratory Results
-
09/30/25 02:23
09/30/25 02:23
Laboratory Results
Total Bilirubin 0.8 mg/dl (0.2-1.3) 09/30/25 02:23
AST 27 U/L (14-36) 09/30/25 02:23
ALT 23 U/L (0-35) 09/30/25 02:23
Alkaline Phosphatase 110 U/L (38-126) 09/30/25 02:23
Troponin I < 0.012 ng/ml 09/30/25 02:47
Impression/Plan
-
Acute hypoxemic respiratory failure secondary to acute acute bronchospasms/wheezing. Does not use oxygen at home
COVID flu negative
Sputum pending
Wean O2 as tolerated
Goal SpO2 88 to 92%
Steroids oral
Azithromycin
Mucolytic's and antitussive
Incentive spirometer
Acapella
DuoNebs
Reviewing inhalers only on Symbicort not on a LAMA
When ready for discharge should be on Symbicort and Spiriva for at least 2 weeks followed by Spiriva daily indefinitely unless if otherwise recommended by pulmonary
Will need outpatient pulmonary follow-up for PFTs for formal diagnosis
Pulmonary consult
Anxiety depression
Continue Celexa
DVT prophylaxis
Low molecular weight heparin
--- NOTE | 2025-09-30 09:17 | W.PN.HOSP.TC ---
Today's Communication/Plan
-
see bold
Assessment / Plan
Assessment / Plan
HPI: 65-year-old former smoking female with underlying COPD presented with increasing shortness of breath, congestion, sore throat, rhinorrhea and found to be hypoxemic. Patient states that she has had increasing wheezing, chest congestion, but no
chest pain, pleurisy, mopped assist, abdominal pain, leg swelling or focal weakness.
#Acute COPD exacerbation
Due to smoke exposure
Pulmonology following, change prednisone to Solu-Medrol 40 mg IV every 12 hours, bronchodilators added
Continue Mucinex, Symbicort, azithromycin, add antitussives
#Acute hypoxic respiratory insufficiency
Currently requiring 2 L of oxygen, wean as tolerated
#Anxiety
Continue SSRI
#Hypothyroidism
Continue levothyroxine
DVT prophylaxis�subcu Lovenox
Physical Exam
General: No acute distress
HEENT: Normocephalic, Atraumatic, EOMI, MMM
Respiratory: Diffuse wheezing
Cardiac: Normal S1/S2, Regular Rate and Rhythm
GI: Soft, Nontender, Nondistended, Normal Bowel Sounds
Extremities: No Clubbing, Cyanosis, or Edema
Neuro: Nonfocal/Grossly Intact
Anticipated Discharge: 24 - 48 hours
Subjective/Interval History
-
Date of Service: September 30, 2025
Objective Data
-
Labs:
Laboratory Results
09/30/25
02:23
WBC 6.9
Hgb 14.5
Hct 43.2
Plt Count 291
Sodium 136
Potassium 4.5
Chloride 102
Carbon Dioxide 27
BUN 7
Creatinine 0.6
Glucose 147 H
Calcium 9.5
Total Bilirubin 0.8
AST 27
ALT 23
Alkaline Phosphatase 110
Vital Signs:
Vital Signs
Temp Pulse Resp BP Pulse Ox
98.7 F 97 25 116/86 92
09/30/25 07:05 09/30/25 08:15 09/30/25 08:15 09/30/25 08:00 09/30/25 07:05
--- NOTE | 2025-09-30 09:19 | CM ---
Chart reviewed and spoke with patient at ED bedside
Lives with at 2 [address] with first floor set up
no LOGAN
Independent no DME
PCP Caryn Rios
[facility] at [place]
no hx of VN nor SNF
DCP is to go home with no needs
Cm will continue to follow up for any dcp needs
[2025-09-30] MEDS: MUCINEX 600 MG PO ×2 (09:25→20:18)
[2025-09-30] MEDS: ZITHROMAX 500 MG PO (09:25)
[2025-09-30] MEDS: DELTASONE 20 MG PO (09:57)
[2025-09-30] MEDS: SAFETUSSIN DM (SUGAR/ALCOHOL FREE) 200 MG PO ×2 (09:58→23:15)
[2025-09-30] MEDS: CELEXA 40 MG PO (09:58)
[2025-09-30] MEDS: SYMBICORT 160/4.5 MCG INHALER 2 PUFF INH ×2 (10:07→20:52)
[2025-09-30] MEDS: DECADRON 4 MG IV ×2 (10:47→22:48)
--- NOTE | 2025-09-30 10:49 | CON.PUL ---
Consultation
Consultation Request
Date/Time Consultation Requested: 09/30/25-730am
Date/Time Consultation Performed: 09/30/2025-8:30 AM
Requesting Provider: Hospitalist
Performing Provider: Dr. Miles
Reason for Consultation: Shortness of breath
Medical History
-
Chief Complaint: Shortness of breath
History of Present Illness:
65-year-old former smoking female with underlying COPD presented with increasing shortness of breath, congestion, sore throat, rhinorrhea and found to be hypoxemic-pulmonary consulted for COPD exacerbation 09/30/2025. Patient states that she has
had increasing wheezing, chest congestion, but no chest pain, pleurisy, mopped assist, abdominal pain, leg swelling or focal weakness.
Past Medical History
Past Medical History: None (COPD. Former smoker. Pulmonary cachexia.)
Social History
Tobacco: Former Smoker (28-uteo-ssts quit December 29, 2021)
Alcohol: Occasional
Drug: None
Occupational Exposures: No known asbestos exposure
Environmental Exposures: No known tuberculosis exposure
Family History
Family History: Reviewed & Not Pertinent (Cancer-? Type)
Allergies / Home Medications
Allergies
Allergy/AdvReac Type Severity Reaction Status Date / Time
amoxicillin Allergy Unknown Verified 09/30/25 02:06
Cephalosporins Allergy Unknown Verified 09/30/25 02:06
Penicillins Allergy Unknown Verified 09/30/25 02:06
Home Medications
�Medication �Instructions �Recorded �Confirmed �Last Taken �Type
citalopram 40 mg tablet (Celexa) 40 mg PO DAILY Mental 12/12/22 09/30/25 12/28/22 History
Health/Anxiety
budesonide-formoterol HFA 160 2 puff inhalation R BID #10.2 grams 12/18/24 09/30/25 Unknown Rx
mcg-4.5 mcg/actuation aerosol
inhaler (Symbicort)
levothyroxine 125 mcg tablet 125 mcg PO DAILY Thyroid 09/30/25 09/30/25 Unknown History
(Synthroid)
Review of Systems
-
Unable to Obtain full review of systems at this time due to: Other (Per HPI)
Vitals / Labs / Diagnostic Testing
Vital Signs
Temp Pulse Resp BP Pulse Ox
98.7 F 96 18 111/92 98
09/30/25 07:05 09/30/25 10:12 09/30/25 10:12 09/30/25 09:00 09/30/25 10:12
Lab Data
09/30/25 02:23
09/30/25 02:23
Microbiology
09/30/25 02:47 Mouth/Oral Cavity Gram Stain - Preliminary
09/30/25 02:29 Nasal Swab Influenza Types A & B (MAIKEL) - Final
Negative for Influenza A & B, NAAT
Negative results must be combined with clinical observations
and patient history.
Nucleic Acid Amplification test (NAAT)performed on the
[employer] platform.
Diagnostic Testing:
Physical Exam
-
Exam:
well-nourished and well-developed in no apparent distress
HEENT-atraumatic, normocephalic
Neck-supple, no JVD, no bruit
Heart-regular rate and rhythm-no murmurs, rubs or gallops
Chest with diminished breath sounds, prolonged expiratory time, rare crackles and forced end expiratory wheezing
Back-no tenderness
Abdomen-soft, nontender, nondistended, no hepatosplenomegaly
Extremities-no cyanosis, clubbing, edema and good peripheral pulses
Integument-intact, no rashes, lesions or ecchymosis
Neurology-alert and oriented, nonfocal motor and sensory exam
Assessment
-
65-year-old former smoking female with underlying COPD presented with increasing shortness of breath, congestion, sore throat, rhinorrhea and found to be hypoxemic-pulmonary consulted for COPD exacerbation 09/30/2025.
COPD exacerbation
Mild hyperglycemia
Conditions present prior to admission:
COPD-does not see a print buyer, states maintained on Symbicort and albuterol
Former [id number]-year quit 2021
Pulmonary cachexia.
Hospitalized December 2022-influenza and COPD exacerbation
Plan
History most consistent with underlying moderate to severe COPD with acute exacerbation
Supplemental oxygen as needed
Home oxygen assessment prior to discharge
Aspiration precautions
Decadron 4 mg IV every 12 hours
Symbicort
Add nebulizers
Mucolytic's
Check cultures
Azithromycin initiated empirically.
Monitor blood sugar
Insulin supplementation as needed
Ongoing smoking cessation counseling
DVT prophylaxis-on Lovenox
Nutrition
Early mobilization
Outpatient pulmonary evaluation-PFTs, yearly low-dose lung cancer screening CT, pulmonary rehab, inhalers, etc.
Diagnostic data:
Chest x-ray 12/14/2024-COPD changes, NAD
CT chest 12/11/2024-no evidence for pulm embolism, mild to moderate centrilobular emphysema
CT chest 09/30/2025-no evidence for pulmonary embolism, mild centrilobular emphysema
Echocardiogram 12/16/2024-EF 50%, normal diastolic function, no valvular disease
Data Reviewed
-
EKG: Report reviewed by me
Radiology: Report reviewed by me
CT Scan: Image personally visualized and interpreted and Report reviewed by me
Labs: Labs reviewed by me
Old Records: Reviewed
Total Time Spent with Patient (in minutes): 55
--- NOTE | 2025-09-30 14:06 | PTCARENOTE ---
Patient OOb to bathroom without difficulty. Patient does become MIRELES, sats drop to 86%. Patient on 2L NC 93-96%. Patient tolerating regular diet, no c/o pain. Patient states, 'My cough is finally getting better.'
[2025-09-30] MEDS: LOVENOX 40 MG SC (17:27)
[2025-10-01 06:38] LABS: Hematocrit 39.6 % (37.0-47.0); Hemoglobin 13.7 g/dL (12.0-16.0); Mean Corp Hgb Conc. 34.6 g/dL (33.0-37.0); Mean Corpuscular Volume 89.0 fL (81.0-99.0); Platelet Count 307 10^3/uL (130-400); Red Cell Dist. Width 12.4 % (11.5-14.5)
[2025-10-01 07:01] LABS: Blood Urea Nitrogen 12 mg/dl (7-17); Calcium 9.4 mg/dl (8.4-10.2); Carbon Dioxide 24 mmol/L (22-30); Chloride 101 mmol/L (98-107); Estimated Creatinine Clearance 84 ml/min; Glucose 139 mg/dl (70-99); Potassium 5.3 mmol/L (3.5-5.1); Sodium 136 mmol/L (135-145); eGFR > 60.00
[2025-10-01] MEDS: SYMBICORT 160/4.5 MCG INHALER 2 PUFF INH ×2 (07:19→19:26)
[2025-10-01] MEDS: DUONEB 3 ML INH ×4 (07:20→19:26)
[2025-10-01 07:54] VITALS: BP 120/78
[2025-10-01] MEDS: MUCINEX 600 MG PO ×2 (08:14→19:35)
[2025-10-01] MEDS: ZITHROMAX 500 MG PO (08:14)
[2025-10-01] MEDS: CELEXA 40 MG PO (08:14)
--- NOTE | 2025-10-01 09:21 | W.PN.HOSP.TC ---
Today's Communication/Plan
-
see bold
Assessment / Plan
Assessment / Plan
HPI: 65-year-old former smoking female with underlying COPD presented with increasing shortness of breath, congestion, sore throat, rhinorrhea and found to be hypoxemic. Patient states that she has had increasing wheezing, chest congestion, but no
chest pain, pleurisy, mopped assist, abdominal pain, leg swelling or focal weakness.
#Acute COPD exacerbation
Due to smoke exposure
Apprec pulm input, continue Solu-Medrol 40 mg IV every 12 hours, bronchodilators
Continue Mucinex, Symbicort, azithromycin, antitussives
#Acute hypoxic respiratory insufficiency
Requiring 2 L of oxygen, wean as tolerated
#Hyperkalemia
Potassium 5.3 today, low potassium diet
Recheck a.m. labs
#Anxiety
Continue SSRI
#Hypothyroidism
Continue levothyroxine
DVT prophylaxis�subcu Lovenox
Total time spent to see the patient on the floor, examine the patient, review data and lab results, discuss treatment plan with patient, nursing staff around 38 minutes.
Physical Exam
General: No acute distress
HEENT: Normocephalic, Atraumatic, EOMI, MMM
Respiratory: Diffuse wheezing
Cardiac: Normal S1/S2, Regular Rate and Rhythm
GI: Soft, Nontender, Nondistended, Normal Bowel Sounds
Extremities: No Clubbing, Cyanosis, or Edema
Neuro: Nonfocal/Grossly Intact
Anticipated Discharge: 24 - 48 hours
Subjective/Interval History
-
Date of Service: October 01, 2025
Reports feeling better. Continues to cough and have wheezing, mildly improved from admission. Denies shortness of breath. Denies chest pain. No fever, no vomiting. She had a bowel movement this morning.
Objective Data
-
Labs:
Laboratory Results
10/01/25
06:01
WBC 6.6
Hgb 13.7
Hct 39.6
Plt Count 307
Sodium 136
Potassium 5.3 H
Chloride 101
Carbon Dioxide 24
BUN 12
Creatinine 0.6
Glucose 139 H
Calcium 9.4
Vital Signs:
Vital Signs
Temp Pulse Resp BP Pulse Ox
97.7 F 95 20 120/78 98
10/01/25 07:54 10/01/25 07:54 10/01/25 07:54 10/01/25 07:54 10/01/25 08:10
I&O
09/30/25 10/01/25 10/02/25
06:59 06:59 06:59
Intake Total 480 / 480
Balance 480 / 480
[2025-10-01] MEDS: SAFETUSSIN DM (SUGAR/ALCOHOL FREE) 200 MG PO (09:41)
[2025-10-01] MEDS: DECADRON 4 MG IV ×2 (10:07→22:23)
--- NOTE | 2025-10-01 10:39 | W.PN.PUL.V3 ---
Today's Communication / Plan
-
.
Wean oxygen.
Increase activity.
No change in steroids.
Continue nebulizers
Assessment
-
65-year-old former smoking female with underlying COPD presented with increasing shortness of breath, congestion, sore throat, rhinorrhea and found to be hypoxemic-pulmonary consulted for COPD exacerbation 09/30/2025.
COPD exacerbation
Mild hyperglycemia
Conditions present prior to admission:
COPD-does not see a junior analyst, states maintained on Symbicort and albuterol
Former [id number]-year quit 2021
Pulmonary cachexia.
Hospitalized December 2022-influenza and COPD exacerbation
Plan
History most consistent with underlying moderate to severe COPD with acute exacerbation
Supplemental oxygen as needed
Home oxygen assessment prior to discharge
Aspiration precautions
Decadron 4 mg IV every 12 hours-no change
Symbicort.
Duo nebs 4 times daily
Mucolytic's
Bedside spirometry 10/01/25-FEV1 1.06 L-44%, FVC 2.96 L-95%, no significant BD response-moderate to severe obstruction
Cultures reviewed.
Sputum culture-usual respiratory juliane.
Influenza negative
Azithromycin initiated empirically.
Monitor blood sugar
Insulin supplementation as needed
Ongoing smoking cessation counseling
Nicotine patch if needed
DVT prophylaxis-on Lovenox
Nutrition
Early mobilization
Outpatient pulmonary evaluation-PFTs, yearly low-dose lung cancer screening CT, pulmonary rehab, inhalers, etc.
Diagnostic data:
Chest x-ray 12/14/2024-COPD changes, NAD
CT chest 12/11/2024-no evidence for pulm embolism, mild to moderate centrilobular emphysema
CT chest 09/30/2025-no evidence for pulmonary embolism, mild centrilobular emphysema
Echocardiogram 12/16/2024-EF 50%, normal diastolic function, no valvular disease
Subjective Data
-
Date of Service:
Date of Service: October 01, 2025
Chief Complaint: Pulmonary Follow Up and Dyspnea Follow Up
Subjective:
[place] better yesterday, still has some wheezing, no chest pain, productive cough, or abdominal pain
Review of Systems
General: Other ( per HPI)
Objective Data
Data Reviewed
Vital Signs / I&O:
Vital Signs
Temp Pulse Resp BP Pulse Ox
97.7 F 95 20 120/78 98
10/01/25 07:54 10/01/25 07:54 10/01/25 07:54 10/01/25 07:54 10/01/25 08:10
Intake and Output
09/30/25 10/01/25 10/02/25
06:59 06:59 06:59
Intake Total 480 / 480
Balance 480 / 480
SaO2: 98
Nasal Cannula flow liters per minute: 2
Physical Exam
General: Respiratory Distress (n) and Comfortable
HEENT: Normocephalic, Anicteric and Moist Mucous Membranes
Cardiovascular: Regular Rhythm
Respiratory: Clear (. Diminished breath sounds and prolonged expiratory time), Wheeze ( forced expiratory wheezing), Crackles (n), Non-Labored Respirations, Accessory Resp Muscle Use (n) and Stridor (n)
GI: Soft, Non Distended and Non Tender
Neurology: Awake, Alert and No Motor Deficits
Skin: Warm, Good Color, Cyanosis (n), Jaundice (n) and Rash (n)
Labs/Micro/Reports
Lab Data
10/01/25 06:01
10/01/25 06:01
Microbiology
09/30/25 02:47 Mouth/Oral Cavity Respiratory Culture - Preliminary
Usual Respiratory Juliane
09/30/25 02:47 Mouth/Oral Cavity Gram Stain - Preliminary
09/30/25 02:29 Nasal Swab Influenza Types A & B (MAIKEL) - Final
Negative for Influenza A & B, NAAT
Negative results must be combined with clinical observations
and patient history.
Nucleic Acid Amplification test (NAAT)performed on the
[employer] platform.
--- NOTE | 2025-10-01 12:31 | CM ---
Patient seen at bedside. She is being treated for COPD exacerbation. She is currently on 2L O2. She plans to return home with spouse upon d/c. Patient asked about home O2. She will need home O2 assessment prior to d/c.
Plan: Home, home O2 assessment needed prior to d/c.
[2025-10-01 15:30] VITALS: BP 128/86
[2025-10-01] MEDS: LOVENOX 40 MG SC (17:12)
[2025-10-01] MEDS: HYCODAN SYRUP 5 ML PO (22:26)
[2025-10-01 22:54] VITALS: BP 142/92
[2025-10-02] MEDS: SYNTHROID 125 MCG PO (05:58)
[2025-10-02 06:00] VITALS: BP 125/77
[2025-10-02] MEDS: SYMBICORT 160/4.5 MCG INHALER 2 PUFF INH (08:07)
[2025-10-02] MEDS: DUONEB 3 ML INH ×3 (08:07→15:12)
[2025-10-02 08:33] LABS: Blood Urea Nitrogen 15 mg/dl (7-17); Calcium 9.1 mg/dl (8.4-10.2); Carbon Dioxide 26 mmol/L (22-30); Chloride 102 mmol/L (98-107); Estimated Creatinine Clearance 84 ml/min; Glucose 110 mg/dl (70-99); Potassium 5.2 mmol/L (3.5-5.1); Sodium 133 mmol/L (135-145); eGFR > 60.00
[2025-10-02] MEDS: ZITHROMAX 500 MG PO (08:51)
[2025-10-02] MEDS: MUCINEX 600 MG PO (08:51)
[2025-10-02] MEDS: CELEXA 40 MG PO (08:52)
[2025-10-02] MEDS: HYCODAN SYRUP 5 ML PO (08:56)
--- NOTE | 2025-10-02 09:29 | W.PN.HOSP.TC ---
Today's Communication/Plan
-
Arrange for home oxygen
Discharge today
Assessment / Plan
Assessment / Plan
HPI: 65-year-old former smoking female with underlying COPD presented with increasing shortness of breath, congestion, sore throat, rhinorrhea and found to be hypoxemic. Patient states that she has had increasing wheezing, chest congestion, but no
chest pain, pleurisy, mopped assist, abdominal pain, leg swelling or focal weakness.
#Acute COPD exacerbation
Due to smoke exposure
Apprec pulm input, patient is much improved on IV Solu-Medrol, transition to oral prednisone tomorrow
She has received 3 days of azithromycin, will discontinue
Medically stable and cleared by pulmonology for discharge on prednisone, Mucinex, Symbicort, antitussives
Will prescribe Spiriva and albuterol inhalers upon discharge
Follow-up with pulmonology in the office
#Acute hypoxic respiratory insufficiency
Was requiring 2-3 L
Oxygen prescription evaluation performed, she does not need oxygen at rest, she does need 3 L with activity
Case management arranging for home oxygen
#Hyperkalemia
Potassium improved at 5.2 today, low potassium diet
Will give 1 dose of Lokelma prior to discharge
#Anxiety
Continue SSRI
#Hypothyroidism
Continue levothyroxine
DVT prophylaxis�subcu Lovenox
Physical Exam
General: No acute distress
HEENT: Normocephalic, Atraumatic, EOMI, MMM
Respiratory: Mild wheezing, much improved from admission
Cardiac: Normal S1/S2, Regular Rate and Rhythm
GI: Soft, Nontender, Nondistended, Normal Bowel Sounds
Extremities: No Clubbing, Cyanosis, or Edema
Neuro: Nonfocal/Grossly Intact
Anticipated Discharge: Today
Subjective/Interval History
-
Date of Service: October 02, 2025
Patient reports feeling much better. Denies chest pain. Denies shortness of breath at rest. She does have dyspnea with activity. Coughing and wheezing have improved. No fever, no vomiting.
Objective Data
-
Labs:
Laboratory Results
10/02/25
06:21
Sodium 133 L
Potassium 5.2 H
Chloride 102
Carbon Dioxide 26
BUN 15
Creatinine 0.6
Glucose 110 H
Calcium 9.1
Vital Signs:
Vital Signs
Temp Pulse Resp BP Pulse Ox
98 F 80 16 125/77 92
10/02/25 06:00 10/02/25 08:10 10/02/25 08:10 10/02/25 06:00 10/02/25 08:10
I&O
10/01/25 10/02/25 10/03/25
06:59 06:59 06:59
Intake Total 480 / 480 940 / 940
Balance 480 / 480 940 / 940
[2025-10-02] MEDS: ANESTHETIC LOZENGE 1 LOZENGE PO (09:38)
--- NOTE | 2025-10-02 10:24 | W.PN.PUL.V3 ---
Today's Communication / Plan
-
Assess for home oxygen
Change Decadron to prednisone tomorrow morning
Finite course of antibiotics
Outpatient pulmonary follow-up
Pulmonary will sign off-please call with questions
Assessment
-
65-year-old former smoking female with underlying COPD presented with increasing shortness of breath, congestion, sore throat, rhinorrhea and found to be hypoxemic-pulmonary consulted for COPD exacerbation 09/30/2025.
COPD exacerbation
Mild hyperglycemia
Conditions present prior to admission:
COPD-does not see a tower attendant, states maintained on Symbicort and albuterol
Former [id number]-year quit 2021
Pulmonary cachexia.
Hospitalized December 2022-influenza and COPD exacerbation
Plan
History most consistent with underlying moderate to severe COPD with acute exacerbation
Supplemental oxygen as needed-currently on 2 L - 98% saturation
Home oxygen assessment prior to discharge
Aspiration precautions
Change Decadron to prednisone 40 mg tomorrow morning with slow taper
Symbicort continues
Duo nebs 4 times daily
Mucolytic's-on Mucinex
Bedside spirometry 10/01/25-FEV1 1.06 L-44%, FVC 2.96 L-95%, no significant BD response-moderate to severe obstruction
Cultures reviewed.
Sputum culture-usual respiratory juliane.
Influenza negative
Azithromycin initiated empirically.
Monitor blood sugar
Insulin supplementation as needed
Ongoing smoking cessation counseling
Nicotine patch if needed
DVT prophylaxis-on Lovenox
Nutrition
Early mobilization
Respiratory status improving-assess for home oxygen, finite course of antibiotics, prednisone taper-pulmonary will sign off-please call with questions
Outpatient pulmonary evaluation-PFTs, yearly low-dose lung cancer screening CT, pulmonary rehab, inhalers, etc.
Diagnostic data:
Chest x-ray 12/14/2024-COPD changes, NAD
CT chest 12/11/2024-no evidence for pulm embolism, mild to moderate centrilobular emphysema
CT chest 09/30/2025-no evidence for pulmonary embolism, mild centrilobular emphysema
Echocardiogram 12/16/2024-EF 50%, normal diastolic function, no valvular disease
Subjective Data
-
Date of Service:
Date of Service: October 02, 2025
Chief Complaint: Pulmonary Follow Up and Dyspnea Follow Up
Subjective:
Feels better, less wheezy, no chest pain or abdominal pain, hoarse voice
Review of Systems
HEENT: Other (Per HPI)
Objective Data
Data Reviewed
Vital Signs / I&O:
Vital Signs
Temp Pulse Resp BP Pulse Ox
98 F 80 16 125/77 92
10/02/25 06:00 10/02/25 08:10 10/02/25 08:10 10/02/25 06:00 10/02/25 09:41
Intake and Output
10/01/25 10/02/25 10/03/25
06:59 06:59 06:59
Intake Total 480 / 480 940 / 940
Balance 480 / 480 940 / 940
SaO2: 92
Nasal Cannula flow liters per minute: 2
Physical Exam
General: Respiratory Distress (n) and Comfortable
HEENT: Normocephalic, Anicteric and Moist Mucous Membranes
Cardiovascular: Regular Rhythm
Respiratory: Clear (. Diminished breath sounds and prolonged expiratory time), Wheeze ( forced expiratory wheezing), Crackles (n), Non-Labored Respirations, Accessory Resp Muscle Use (n) and Stridor (n)
GI: Soft, Non Distended and Non Tender
Neurology: Awake, Alert and No Motor Deficits
Skin: Warm, Good Color, Cyanosis (n), Jaundice (n) and Rash (n)
Labs/Micro/Reports
Lab Data
10/01/25 06:01
10/02/25 06:21
Microbiology
09/30/25 02:47 Mouth/Oral Cavity Respiratory Culture - Preliminary
Usual Respiratory Juliane
09/30/25 02:47 Mouth/Oral Cavity Gram Stain - Preliminary
09/30/25 02:29 Nasal Swab Influenza Types A & B (MAIKEL) - Final
Negative for Influenza A & B, NAAT
Negative results must be combined with clinical observations
and patient history.
Nucleic Acid Amplification test (NAAT)performed on the
[employer] platform.
--- NOTE | 2025-10-02 13:02 | CM ---
CM reviewed chart, patient seen bedside, for d/c today.
Patient requires O2 upon ambulation- patient aware, agreeable to referral to [facility]- clinicals faxed to [phone].
IMM reviewed, signed, provided with copy, placed in chart.
Patient will transport self home.
Will await confirmation of O2, will need delivered bedside prior to d/c.
Plan; home, awaiting confirmation of O2 via [facility]
--- NOTE | 2025-10-02 13:07 | W.PN.UPDATE ---
Update Note
Progress Note Update
Patient is in need of oxygen on exertion due to pulse oximetry of 94% on room air at rest; 86% on room air with exertion.
Patient was placed on 3L O2 via nasal cannula with saturation of 93%. Oxygen will help to improve hypoxemia.
Patient is mobile within the home. Albuterol therapy has been discussed and is ineffective in treating hypoxemia-related symptoms.
Oxygen will improve the patient's symptoms.
--- NOTE | 2025-10-02 13:09 | W.DCSUMMARY ---
Discharge Summary
Discharge Data
Date of Admission: 09/30/25
Date of Discharge: 10/02/25
-
Pending Results: No
Hospital Course
Discharge diagnosis:
Acute on chronic obstructive pulmonary disease exacerbation
Acute hypoxic respiratory insufficiency
Hyperkalemia
Anxiety
Hypothyroidism
Consults: Pulmonology
Chest CT:
1. No evidence of pulmonary embolism or thoracic aortic dissection.
2. No acute pulmonary abnormality appreciated.
3. Mild centrilobular emphysema, unchanged. Patient should be assessed for an annual low-dose lung cancer CT program, as pulmonary emphysema is an independent risk factor for lung cancer.
4. Moderate coronary arterial calcification. Please correlate with symptoms of and risk factors for coronary artery disease, with further workup as clinically appropriate
Hospital course:
65-year-old female with past medical history of COPD, hypothyroidism, and anxiety was admitted for acute hypoxic respiratory insufficiency and acute on chronic obstructive pulmonary disease exacerbation secondary to smoke exposure. Patient was seen
in conjunction with pulmonology. She was treated with IV dexamethasone, bronchodilators. She received 3 days of azithromycin.
Patient had mild hyperkalemia, that was treated with Lokelma and low potassium diet.
After several days, her breathing improved dramatically. Home oxygen prescription evaluation was performed, she needs 3 L of oxygen with activity. She is medically stable and cleared by pulmonology for discharge on a prednisone taper. She can
continue her Symbicort, prescriptions have been provided for Spiriva and albuterol rescue inhalers. She needs to follow-up with her PCP in 1 week, and pulmonology in the office in 2-3 weeks.
Disposition: Home self-care
Discharge planning: Required 36-minutes
Discharge Plan
-
Patient Disposition: Home (Routine Discharge)
Discharge Diagnosis/Procedures: Acute chronic obstructive pulmonary disease exacerbation
Condition: Good
Diet: Regular
Activity: As tolerated
Driving Restrictions: As prior to admission
Activity Restrictions/Additional Instructions:
You need to wear oxygen 3 L with activity.
Please follow-up with pulmonology in the office in 1 to 2 weeks, they will wean your oxygen.
Follow-up with your primary care provider in 1 week as well.
Referrals:
Caryn Rios CRNP [Family Provider, Family Practice] - in one week
Reagan Miles MD [Active, Pulmonary Medicine] - in one to two weeks
Referral Note: COPD exacerbation-PFTs, 6-minute walk test
Prescriptions:
New
Spiriva Respimat 2.5 mcg/actuation mist
2 puff inhalation DAILY Qty: 4 0RF
prednisone 10 mg Tablet
See Rx Instructions .ROUTE .COMPLEX Qty: 45 0RF
Rx Instructions:
Take By Mouth:
50 mg daily x3 days, 40 mg daily x3 days,
30 mg daily x3 days, 20 mg daily x3 days,
10 mg daily x3 days
albuterol sulfate [Ventolin HFA] 90 mcg/actuation HFA aerosol inhaler
2 puff inhalation QID PRN (Reason: shortness of breath or wheezing) Qty: 8.5 0RF
Rx Instructions:
Please give with spacer
guaifenesin 600 mg Tablet Extended Release 12hr
600 mg PO Q12 14 Days Qty: 28 0RF
codeine-guaifenesin [Guaifenesin AC] 10-100 mg/5 mL liquid
5 ml PO Q4HPRN PRN (Reason: Cough) Qty: 200 0RF
Continued
citalopram [Celexa] 40 mg Tablet
40 mg PO DAILY
budesonide-formoterol [Symbicort] 160-4.5 mcg/actuation Hfa Aerosol Inhaler
2 puff inhalation R BID Qty: 10.2 1RF
levothyroxine [Synthroid] 125 mcg Tablet
125 mcg PO DAILY
Discharge Orders:
Discharge Patient (As Directed); Ordered 10/02/25
Ordered By: Indra Paz
Discharge Date and Time
Discharge Date/Time: 10/02/25 16:17
Print Language: GEORGIAN
[2025-10-02] MEDS: DECADRON 4 MG IV (13:19)
[2025-10-02 15:00] VITALS: BP 121/83
[2025-10-02] MEDS: PREVNAR 20 0.5 ML IM (15:23)
[2025-10-02] MEDS: LOKELMA 10 GRAM PO (15:50)
== END 2025-10-02 16:17 | disposition home or self-care (01) | DRG 191 ==
LOC: 4 WEST ACU 06:08
PROVIDERS: Physician Assistant; ADMITTING PHYSICIAN Hospitalist; ATTENDING PHYSICIAN Family Medicine; EMERGENCY PHYSICIAN Student in an Organized Health Care Education/Training Program; FAMILY PHYSICIAN Nurse Practitioner Family; OTHER PHYSICIAN Internal Medicine Critical Care Medicine
DX: J44.1 Chronic obstructive pulmonary disease with (acute) exacerbation (principal); R64 Cachexia; F17.200 Nicotine dependence, unspecified, uncomplicated; Z11.52 Encounter for screening for COVID-19; R06.89 Other abnormalities of breathing; F41.9 Anxiety disorder, unspecified; E03.9 Hypothyroidism, unspecified; E87.5 Hyperkalemia; F32.A Depression, unspecified; Z71.6 Tobacco abuse counseling; Z79.899 Other long term (current) drug therapy; Z68.25 Body mass index [BMI] 25.0-25.9, adult
CPT/HCPCS: 71275; 80048; 80053; 83880; 84484; 85025; 85027; 87070; 87205; 87502; 87811; 93005; 94010; 94640; 96374; 99285; 99406; Q9967

== ENCOUNTER → 2025-10-14 08:54 | Outpatient (REF) | payer MEDICARE, SELFPAY | LOC: WDC 08:54 | PROVIDERS: ATTENDING PHYSICIAN Nurse Practitioner Family | DX: Z78.0 Asymptomatic menopausal state (principal); Z12.31 Encounter for screening mammogram for malignant neoplasm of breast | CPT/HCPCS: 77063; 77067 ==